=== PATIENT | female | born 1995 | race African-American/Black ===

== ENCOUNTER → 2017-01-01 | Outpatient (CLI) | payer OTHER ==
--- NOTE | 2017-01-01 16:16 | MR ---
EXAMINATION TYPE: MR brain/cspine wo DATE OF EXAM ORDERED: 01/01/2017 4:02 PM HISTORY: M54.81 Bilateral occipital neuralgia, M54.2 Cervic. TECHNOLOGIST HISTORY AT TIME OF EXAM: Headaches, Neck Pain, Forgetful COMPARISON: None. TECHNIQUE: Multiplanar, multiecho imaging of the brain and cervical spine [facility] FINDINGS: BRAIN: Midline structures are unremarkable. There is a normal craniocervical junction. Echoplanar diffusion imaging is normal. There are normal vascular flow voids. The orbits are unremarkable. There is no evidence of a CP angle mass lesion. There is no focal lesion, mass effect or midline shift identified. I do not see evidence of intracran ial blood CERVICAL SPINE: Prevertebral soft tissues are normal. Vertebral body height and alignment are maintained. Atlantoaxial relationships are normal. There are normal craniocervical junction. Cord signal is normal. At C2-3 and C3-4, no definite abnormality is seen. At C4-C5, there is mild right-sided intervertebral foraminal narrowing due to minimal uncovertebral j oint disease. At C5-C6, there is mild, bilateral intervertebral foraminal narrowing. There is a diffuse disc displa cement. This is mildly deforming the thecal sac with cord contact without compression. The facet and uncovertebral joints are unremarkable. At C6-C7, there is mild left-sided intervertebral foraminal narrowing. There is mild disc space loss. There is no significant compressive discopathy. At C7-T1, no definite abnormality is seen. IMPRESSION: 1. MILD, MULTILEVEL INTERVERTEBRAL FORAMINAL NARROWING. 2. DEGENERATIVE DISC DISEASE, C5-6 AND C6-7. 3. NORMAL MRI OF THE BRAIN.
== END | disposition home or self-care (01) ==
LOC: RADMRIMAIN 14:51
PROVIDERS: ATTEND Psychiatry & Neurology Neurology
DX: M50.322 Other cervical disc degeneration at C5-C6 level (principal); M99.71 Connective tissue and disc stenosis of intervertebral foramina of cervical region; M54.81 Occipital neuralgia
CPT/HCPCS: 70551; 72141